=== PATIENT | male | born 1960 | race Caucasian/White ===

== ENCOUNTER 2024-06-07 10:26 | Inpatient (IN) | payer MEDICAID, OTHER, SELFPAY ==
[2024-06-07 10:27] VITALS: BP 123/80; PULSE 64; RESP 16; TEMP 36.3; O2SAT 96; BMI 28.9
[2024-06-07 10:43] VITALS: RESP 16
--- NOTE | 2024-06-07 10:51 | PC.NURSE ---
Antonio comes to the ED today due to recently suicidal ideation without a plan. Pt reports he has been homeless off and on for a bit of time now and he is sick of it . pt requesting housing options and potential TSS admission. Pt is calm and cooperative, help seeking, offering no complaints to this RN. Patient aware of plan of care for medical clearance and then CARE team gayle
[2024-06-07 11:03] LABS: Appearance Urine Clear; Color Urine Dark Yellow; Glucose Urine UA Negative (Negative); Leukocyte Esterase Urine Negative (Negative); Nitrite Urine Negative (Negative); PH 5.5 (5.0-9.0); Specific Gravity - Urine >= 1.030 (1.005-1.025); UMIC TRIGGER UACC YES; Urine Blood Trace (Negative); Urine Ketones Trace mg/dL (Negative); Urine Protein 30 (1+) mg/dL (Neg-Trace)
[2024-06-07 11:08] LABS: Bacteria Urine None Seen (None Seen); Squamous Epithelial Cell Urine 0-2 /HPF (0-2); WBC Urine 0-5 /HPF (0-5)
[2024-06-07 11:19] LABS: Amphetamine Screen Urine Not Detected (Not Detect); Barbiturates, Urine Not Detected (Not Detect); Benzodiazepines Screen Urine Not Detected (Not Detect); Buprenorphine Scr Not Detected (Not Detect); Cannabinoid Screen Urine Not Detected (Not Detect); Cocaine Screen Urine POSITIVE (Not Detect); Fentanyl, urine Not Detected (Not Detect); Methadone Screen, Urine Not Detected (Not Detect); Opiate Screen Urine Not Detected (Not Detect); Oxycodone Screen Urine Not Detected (Not Detect); Phencyclidine Screen Urine Not Detected (Not Detect)
--- NOTE | 2024-06-07 11:21 | ED_ITS ---
HPI - Psych General Chief Complaint: Psychiatric Symptoms Stated Complaint: Depressed Time Seen by Provider: 06/07/24 10:34 Source: patient and EMS Mode of arrival: EMS Limitations: no limitations History of Present Illness ED Provider: Nory SON HPI Narrative: 63-year-old male presents with anxiety, depression, suicidal ideation reports increasing life stressors. He does not have a particular plan as how to how he would end his life has been feeling this way for a while. He reports recently he relapsed on cocaine denies any other drug use. No alcohol abuse. Denies tobacco. No visual, auditory or tactile hallucinations. Denies medical complaints at this time. Related Data Home Medications ?Medication ?Instructions ?Recorded ?Confirmed aripiprazole 2 mg tablet 2 mg PO BEDTIME 06/07/24 06/07/24 atorvastatin 20 mg tablet 20 mg PO BEDTIME 06/07/24 06/07/24 duloxetine 20 mg capsule,delayed 20 mg PO BEDTIME 06/07/24 06/07/24 release duloxetine 60 mg capsule,delayed 60 mg PO DAILY 06/07/24 06/07/24 release levothyroxine 75 mcg tablet 75 mcg PO DAILY 06/07/24 06/07/24 melatonin 5 mg tablet 5 mg PO BEDTIME PRN Insomnia 06/07/24 06/07/24 mirtazapine 15 mg tablet 15 mg PO BEDTIME 06/07/24 06/07/24 omeprazole 20 mg capsule,delayed 20 mg PO DAILY 06/07/24 06/07/24 release Allergies Allergy/AdvReac Type Severity Reaction Status Date / Time No Known Allergies Allergy Verified 06/07/24 10:30 Review of Systems 2 Review of Systems: Yes all other systems are reviewed and are negative PMFSH Past Medical History Attestation statement: The following information was validated with the patient. Source: old records reviewed and nursing notes reviewed Social History Social History Smoked in Last 30 Days: Yes Use of substances other than those prescribed or required for medical reasons: Yes Substance Use Type: Crack/Cocaine Substance Use Frequency: Recent Binge Last Used Substance: Days (ago) Any prior treatment program specific to substance use: No Advance Directives: No Advance Directives Information Provided: Yes Do you have a plan to hurt others: No Plan Physical Exam 2 Vital Signs: Vital Signs: Last Vital Signs Temp 97.3 F 06/07/24 10:27 Pulse 64 06/07/24 10:27 Resp 16 06/07/24 10:43 BP 123/80 06/07/24 10:27 Pulse Ox 96 06/07/24 10:27 O2 Del Method Room Air 06/07/24 10:27 BMI result Body Mass Index 28.9 vss Appearance: Alert.? Oriented X3.? No acute distress.? Head: Normocephalic, atraumatic, no step-offs or deformities Eyes: Pupils equal, round and reactive to light.?.? Neck: Normal inspection.? Neck supple.? CVS: Normal heart rate and rhythm.? Pulses normal.? Respiratory: No respiratory distress.? Breath sounds normal.? Abdomen: Soft and nontender.? Skin: Skin warm and dry.? Normal skin color.? Normal skin turgor.? Extremities: No lower extremity edema.? No calf ttp. 5/5 strength to bilateral upper and lower extremities Neuro: Oriented X 3.? No motor deficit.? No sensory deficit. CN 2-12 intact Course Reevaluation(s) Reevaluation #1: UA without infection. Urine toxicology positive for cocaine. Labs pending Time: 11:23 Reevaluation #2: CBC with no acute findings. Chemistry with mild elevation of BUN and creatinine will encourage p.o. hydration. Transaminases elevated in the 2-1 fashion this could be secondary to substance abuse. UA without infection. Urine toxicology positive for cocaine which patient admitted to. Ethanol negative. At this time patient to be placed into observation to allow more time to be evaluated by care team. Continues to be a one-to-one observation. Time: 12:29 Reevaluation #3: Patient seen and evaluated by CARE team, recommending dual dx program. Time: 14:33 Medical Decision Making Medical Decision Making [facility] Narrative: 63-year-old male presents with homelessness, depression, suicidal ideation with no particular plan recently relapsed on cocaine Physical exam patient unkempt otherwise unremarkable. History and physical exam concerning for anxiety, depression, polysubstance abuse. Will rule out metabolic derangements in urinary infection although unlikely. Plan medical clearance evaluation by care team Differential Diagnosis Differential Diagnoses: The differential diagnosis associated with the presentation includes (History and physical exam concerning for anxiety, depression, polysubstance abuse. Will rule out metabolic derangements in urinary infection although unlikely.) Admission/Observation Consideration of admission/observation: Escalation of care including admission/observation considered Lab Data MDM Lab Attestation statement: I reviewed the patient's lab results. 06/07/24 12:00 06/07/24 12:00 Labs: Lab Results 06/07/24 06/07/24 06/07/24 Range/Units 10:53 10:54 12:00 WBC 7.7 (4.8-10.8) X10*3/uL RBC 4.81 (4.60-5.80) X10*6/uL Hgb 15.0 (14.0-18.0) g/dl Hct 43.9 (42.0-52.0) % MCV 91.3 (80.0-98.0) fL MCH 31.2 (27.0-33.0) pg MCHC 34.2 (31.0-36.0) g/dl RDW 14.2 (11.0-16.0) % Plt Count 176 (160-400) X10*3/uL MPV 10.4 (9.4-12.4) fL Immature Gran % (Auto) 0.3 (0.0-0.4) % Neut % (Auto) 69.7 (45-73) % Lymph % (Auto) 20.2 (20-40) % Letcher % (Auto) 8.3 (2-11) % Eos % (Auto) 0.8 (0-4) % Baso % (Auto) 0.7 (0-2) % Lymph # (Auto) 1.6 (1.2-4.9) X10*3/uL Letcher # (Auto) 0.6 (0.1-1.2) X10*3/uL Eos # (Auto) 0.1 (0.0-0.4) X10*3/uL Baso # (Auto) 0.1 (0.0-0.2) X10*3/uL Abs Immat Gran (auto) 0.02 (0.00-0.03) X10*3/uL Absolute Neuts (auto) 5.4 (2.0-8.3) x10*3/uL Absolute Nucleated RBC 0.000 (0.0-0.012) X10*3/uL Nucleated RBC % (auto) 0.0 (0.0-0.2) /100WBC Sodium 144 (135-145) mmol/L Potassium 4.3 (3.3-5.1) mmol/L Chloride 106 (96-108) mmol/L Carbon Dioxide 24 (22-29) mmol/L Anion Gap 18 (12-20) BUN 19 H (9-16) mg/dL Creatinine 1.25 (0.5-1.4) mg/dL Estim Creat Clear Calc 63.7 Estimated GFR 58 Random Glucose 91 (60-115) mg/dL Calcium 9.3 (8.4-10.2) mg/dL Magnesium 2.1 (1.6-2.6) mg/dL Total Bilirubin 0.9 (0.0-1.0) mg/dL AST 169 H (5-37) U/L ALT 43 H (0-40) U/L Alkaline Phosphatase 40 (39-117) U/L Total Protein 6.9 (6.5-8.0) g/dL Albumin 4.1 (3.5-5.0) g/dL Urine Color Dark Yellow Urine Appearance Clear Urine pH 5.5 (5.0-9.0) Ur Specific Leroy >= 1.030 H (1.005-1.025) Urine Protein 30 (1+) H (Neg-Trace) mg/dL Urine Glucose (UA) Negative (Negative) mg/dL Urine Ketones Trace (Negative) mg/dL Urine Blood Trace H (Negative) Urine Nitrite Negative (Negative) Ur Leukocyte Esterase Negative (Negative) Urine RBC 6-10 H (0-2) /HPF Urine WBC 0-5 (0-5) /HPF Ur Squamous Epith Cells 0-2 (0-2) /HPF Urine Bacteria None Seen (None Seen) Hyaline Casts 3-5 (0-2) /LPF Urine Opiates Screen Not Detected (Not Detect) Ur Buprenorphine Scrn Not Detected (Not Detect) ng/mL Ur Oxycodone Screen Not Detected (Not Detect) ng/mL Urine Methadone Screen Not Detected (Not Detect) ng/mL Urine Fentanyl Screen Not Detected (Not Detect) Ur Barbiturates Screen Not Detected (Not Detect) Ur Phencyclidine Scrn Not Detected (Not Detect) Ur Amphetamines Screen Not Detected (Not Detect) U Benzodiazepines Scrn Not Detected (Not Detect) Urine Cocaine Screen POSITIVE H (Not Detect) U Marijuana (THC) Screen Not Detected (Not Detect) Ethyl Alcohol < 10 mg/dL Chronic Conditions Patient?s care impacted by: Other Social Determinants Patient?s care significantly limited by Social Determinants of Health including: Inadequate housing, Low income, Alcoholism and drug addiction in family, Problems related to primary support group, Unemployment, Problems related to employment and Other Social Determinant of Health Critical Care Time Critical Care Time Critical Care Time: No Discharge Plan Discharge Clinical Impression: Suicidal ideation, Depression Patient Disposition: Still a Patient Prescriptions: No Action atorvastatin 20 mg Tablet 20 mg PO BEDTIME levothyroxine 75 mcg Tablet 75 mcg PO DAILY omeprazole 20 mg Capsule,Delayed Release(Dr/Ec) 20 mg PO DAILY mirtazapine 15 mg Tablet 15 mg PO BEDTIME duloxetine 20 mg Capsule,Delayed Release(Dr/Ec) 20 mg PO BEDTIME duloxetine 60 mg Capsule,Delayed Release(Dr/Ec) 60 mg PO DAILY aripiprazole 2 mg Tablet 2 mg PO BEDTIME melatonin 5 mg Tablet 5 mg PO BEDTIME PRN (Reason: Insomnia) Interventions: Bradford-Suicide Risk Severity Scale Last Done: 06/07/24 10:43 Print Language: Albanian
[2024-06-07 12:05] LABS: MANUAL DIFF FLAG NO
[2024-06-07 12:06] LABS: Basophils Absolute Auto 0.1 X10*3/uL (0.0-0.2); Basophils Percent Auto 0.7 % (0-2); Eosinophils Absolute Auto 0.1 X10*3/uL (0.0-0.4); Eosinophils Percent Auto 0.8 % (0-4); Hematocrit 43.9 % (42.0-52.0); Imm Gran Abs Auto 0.02 X10*3/uL (0.00-0.03); Imm Gran Pct Auto 0.3 % (0.0-0.4); Lymphocytes Absolute Auto 1.6 X10*3/uL (1.2-4.9); Lymphocytes Percent Auto 20.2 % (20-40); Mean Corpuscular HGB Conc 34.2 g/dl (31.0-36.0); Mean Corpuscular Hemoglobin 31.2 pg (27.0-33.0); Mean Corpuscular Volume 91.3 fL (80.0-98.0); Mean Platelet Volume 10.4 fL (9.4-12.4); Monocytes Absolute Auto 0.6 X10*3/uL (0.1-1.2); Monocytes Percent Auto 8.3 % (2-11); Neutrophils Absolute Auto 5.4 x10*3/uL (2.0-8.3); Neutrophils Percent Auto 69.7 % (45-73); Platelet Count 176 X10*3/uL (160-400); Red Blood Count 4.81 X10*6/uL (4.60-5.80); Red Cell Distribution Width 14.2 % (11.0-16.0); White Blood Count 7.7 X10*3/uL (4.8-10.8)
[2024-06-07 12:23] LABS: Alanine Aminotransferase 43 U/L (0-40); Albumin Level 4.1 g/dL (3.5-5.0); Alkaline Phosphatase 40 U/L (39-117); Anion Gap 18 (12-20); Aspartate Amino Transferase 169 U/L (5-37); Bilirubin Total 0.9 mg/dL (0.0-1.0); Blood Urea Nitrogen 19 mg/dL (9-16); Calcium 9.3 mg/dL (8.4-10.2); Carbon Dioxide 24 mmol/L (22-29); Chloride 106 mmol/L (96-108); Creatinine Clr Calc Pharmacy 63.7; Estimated Glomerular Filt Rate 58; Ethanol < 10 mg/dL; Glucose Random 91 mg/dL (60-115); Magnesium 2.1 mg/dL (1.6-2.6); Potassium 4.3 mmol/L (3.3-5.1); Sodium 144 mmol/L (135-145); Total Protein 6.9 g/dL (6.5-8.0)
--- NOTE | 2024-06-07 17:32 | MHC.CARE ---
Patient evaluated by the CARE Team, disposition inpatient psychiatric/dual diagnosis treatment. ED provider, Rudolph Whitney updated.
[2024-06-07 20:55] VITALS: BP 108/73; PULSE 76; RESP 18; TEMP 36.8; O2SAT 96
[2024-06-08 06:15] VITALS: BP 112/85; PULSE 64; RESP 18; TEMP 36.6; O2SAT 98
--- NOTE | 2024-06-08 08:31 | ECG_ITS ---
Test Reason : CHECK QTC Blood Pressure : / mmHG Vent. Rate : 057 BPM Atrial Rate : 057 BPM P-R Int : 164 ms QRS Dur : 074 ms QT Int : 456 ms P-R-T Axes : 067 007 032 degrees QTc Int : 443 ms Sinus bradycardia Otherwise normal ECG No previous ECGs available Referred By: Generic ED Physician Electronically Signed By:JYAE HYATT MD
--- NOTE | 2024-06-08 12:06 | PHA.MEDREC ---
Pharmacy Consult ? Medication Reconciliation Pharmacy has reviewed the medication reconciliation completed by nursing. UMANG Arora, [place] Text [facility] picture of patient's rx bottles filled from [facility]. Medication bottles match home meds.
[2024-06-08 14:00] VITALS: BP 130/85; PULSE 83; RESP 18; TEMP 36.4; O2SAT 97
[2024-06-08 14:46] VITALS: BMI 32.1
--- NOTE | 2024-06-08 14:49 | P.HPPS_ITS ---
HPI Date of Service: 06/08/24 Chief Complaint: depression si crack cocaine use Sources of Information: patient interviewed, chart reviewed and crisis/core team assessment reviewed Additional Sources of Information: pt seen 06/08/24 1500 chart reviewed pt seen HPI Subjective Notes: Salazar Warning and Conditional Voluntary Healthcare Proxy: No Narrative: The patient is a 63-year-old male long history of depression crack cocaine abuse. He was referred from the emergency room secondary worsening depression, hopelessness helplessness thoughts he would be better off increasingly frustrated. Things have gotten worse over the past year and he has been hospitalized on a couple of occasions [facility]. He was stable in the past on the Effexor and Abilify and eventually this stopped working. Stressors include the of his parents, the loss of a long-term over 20 year relationship in 2021 and dealing with chronic pain. He states he has had failed left hip surgery with attempt at repair x1 leaves him with chronic pain and chronic this pain. Past history of significant alcohol use states has been sober from alcohol and denies narcotic use his current meds include duloxetine which she does not feel has been particularly helpful mirtazapine and reportedly low-dose Abilify unclear how he has been taking these and does not take it when he is using crack cocaine he also appears demoralized over the lack of available availability of long-term residential programs for substance use. Has [facility] been at [facility] and [facility] Medical Evaluation Reviewed: Yes Mild elevation of transaminases noted urine positive for cocaine PMF Narrative: History of hip surgery reported failed hip surgery and left hip chronic lumbar disc pain Social History: Patient was born and raised in [place] two-parent household parents are has 2 older brothers. He is not close with his older brothers. Patient has mostly lived in [place] for the past 25 years worked as a [employer] Substance History: Past history of significant alcohol use chronic intermittent use of crack cocaine with multiple substance admissions Diagnostics Vital Signs (24Hr): Vital Signs - 24 hr 06/07/24 20:55 06/08/24 06:15 06/08/24 14:00 Temperature 98.3 F 97.8 F 97.6 F Pulse Rate 76 64 83 Respiratory Rate 18 18 18 Blood Pressure 108/73 112/85 130/85 Pulse Oximetry 96 98 97 Oxygen Delivery Method Room Air Room Air Room Air BMI result Body Mass Index 32.1 Labs 06/07/24 12:00 06/07/24 12:00 Labs: Laboratory Results - last 48 hr 06/07/24 06/07/24 06/07/24 10:53 10:54 12:00 WBC 7.7 RBC 4.81 Hgb 15.0 Hct 43.9 MCV 91.3 MCH 31.2 MCHC 34.2 RDW 14.2 Plt Count 176 MPV 10.4 Immature Gran % (Auto) 0.3 Neut % (Auto) 69.7 Lymph % (Auto) 20.2 Robeson % (Auto) 8.3 Eos % (Auto) 0.8 Baso % (Auto) 0.7 Lymph # (Auto) 1.6 Robeson # (Auto) 0.6 Eos # (Auto) 0.1 Baso # (Auto) 0.1 Abs Immat Gran (auto) 0.02 Absolute Neuts (auto) 5.4 Absolute Nucleated RBC 0.000 Nucleated RBC % (auto) 0.0 Sodium 144 Potassium 4.3 Chloride 106 Carbon Dioxide 24 Anion Gap 18 BUN 19 H Creatinine 1.25 Estim Creat Clear Calc 63.7 Estimated GFR 58 Random Glucose 91 Calcium 9.3 Magnesium 2.1 Total Bilirubin 0.9 AST 169 H ALT 43 H Alkaline Phosphatase 40 Total Protein 6.9 Albumin 4.1 Urine Color Dark Yellow Urine Appearance Clear Urine pH 5.5 Ur Specific Roberts >= 1.030 H Urine Protein 30 (1+) H Urine Glucose (UA) Negative Urine Ketones Trace Urine Blood Trace H Urine Nitrite Negative Ur Leukocyte Esterase Negative Urine RBC 6-10 H Urine WBC 0-5 Ur Squamous Epith Cells 0-2 Urine Bacteria None Seen Hyaline Casts 3-5 Urine Opiates Screen Not Detected Ur Buprenorphine Scrn Not Detected Ur Oxycodone Screen Not Detected Urine Methadone Screen Not Detected Urine Fentanyl Screen Not Detected Ur Barbiturates Screen Not Detected Ur Phencyclidine Scrn Not Detected Ur Amphetamines Screen Not Detected U Benzodiazepines Scrn Not Detected Urine Cocaine Screen POSITIVE H U Marijuana (THC) Screen Not Detected Ethyl Alcohol < 10 EKG EKG: reviewed Meds/Allergies Meds Home Medications ?Medication ?Instructions ?Recorded ?Confirmed ?Type aripiprazole 2 mg tablet 2 mg PO BEDTIME 06/07/24 06/07/24 History atorvastatin 20 mg tablet 20 mg PO BEDTIME 06/07/24 06/07/24 History duloxetine 20 mg capsule,delayed 20 mg PO BEDTIME 06/07/24 06/07/24 History release duloxetine 60 mg capsule,delayed 60 mg PO DAILY 06/07/24 06/07/24 History release levothyroxine 75 mcg tablet 75 mcg PO DAILY 06/07/24 06/07/24 History melatonin 5 mg tablet 5 mg PO BEDTIME PRN Insomnia 06/07/24 06/07/24 History mirtazapine 15 mg tablet 15 mg PO BEDTIME 06/07/24 06/07/24 History omeprazole 20 mg capsule,delayed 20 mg PO DAILY@0630 06/07/24 06/08/24 History release Allergies Allergies Allergy/AdvReac Type Severity Reaction Status Date / Time No Known Allergies Allergy Verified 06/07/24 10:30 Mental Status Exam Mental Status Exam Patient Appearance: Disheveled Patient Orientation: Person, Place, Time and Situation Level of Consciousness: Awake and Appropriate Patient Behavior: Belligerent Mood Description: Depressed and Apprehensive Affect Description: Constricted, Depressed, Labile and Angry Patient Cognition Impaired: No Ability to Follow Directions: Fair Speech Pattern: Clear Memory Description: Intact Hallucinations: None Delusions: Not Present Thought Process: Intact, Distracted and Goal Oriented Thought Content: positive for Goal Oriented, positive for Preoccupation, negative for Suicidal Ideation or negative for Homicidal Ideation Depressive Symptoms: Increased Anxiety, Increased Irritability, Difficulty Sleeping, Hopelessness, Increased Fatigue, Thoughts of /Suicide, Loss of Energy and Difficulty Concentrating Judgement: Fair Judgement and Insight: Patient is asking for help and willingly signed a CV salazar warning given. He was somewhat labile and irritable can you get that from the chart discussed with patient he might be in duloxetine withdrawal Assessment & Plan Assessment & Plan (1) Major depressive disorder, recurrent severe without psychotic features: Status: Acute Code(s): F33.2 - Major depressive disorder, recurrent severe without psychotic features (2) Cocaine use disorder, severe, dependence: Status: Acute Code(s): F14.20 - Cocaine dependence, uncomplicated Plan Patient when seen irritable depressed agitated denied active self-harm he was asking for help. Has for addiction consult with possibility of Suboxone for chronic pain and was hoping longer-term sobriety in relationship to crack cocaine. 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 Consider taper of duloxetine patient needs education that even if he does not take duloxetine when he is using cocaine it very difficult to stabilize from depression for both situational and biological reasons when actively using cocaine crack intermittently he is hoping eventually for longer- term residential treatment which would be appropriate Plan admit to M3 on a conditional voluntary Evaluate labs and EKG ER physician note reviewed Patient will need much education on clinical depression medication and its interaction with substance use. Educate educated regarding possibility of duloxetine withdrawal causing instability If increase adrenergic activity might benefit from clonidine Addiction consult placed Patient educated on: diagnosis, medication risk/benefits and substance abuse Informed Consent: further education needed Reason for continued inpatient stay Substantial Risk for: harm to self and rapid decompensation Statement Statement: I have reviewed the history and physical and performed a pertinent examination on my patient. No changes have occurred unless specified. If the History and Physical was not performed prior to admission, the Hospitalist's service will be consulted for completing the admission physical. Time Spent With Patient Time: Total time managing care of this patient today _60___ minutes.
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
[2024-06-08] MEDS: DULoxetine HCl 60 MG CAPSULE.DR PO (16:22)
[2024-06-08 19:45] VITALS: BP 114/56; PULSE 80; RESP 16; TEMP 37; O2SAT 94
[2024-06-08] MEDS: Atorvastatin Calcium 20 MG TABLET PO (22:02)
[2024-06-08] MEDS: Melatonin 3 MG TABLET 6 MG PO (22:02)
[2024-06-08] MEDS: DULoxetine HCl 20 MG CAPSULE.DR PO (22:02)
[2024-06-08] MEDS: Mirtazapine 15 MG TABLET PO (22:03)
[2024-06-08] MEDS: Topiramate 25 MG TABLET PO (22:03)
[2024-06-08] MEDS: Acetaminophen 325 MG TABLET 650 MG PO (22:03)
[2024-06-09] MEDS: Levothyroxine Sodium 75 MCG TABLET PO (06:47)
[2024-06-09] MEDS: Omeprazole 20 MG CAPSULE.DR PO (06:47)
[2024-06-09 07:28] VITALS: BP 123/76; PULSE 55; RESP 14; TEMP 36.8; O2SAT 96
[2024-06-09] MEDS: Brexpiprazole 1 MG TABLET 0.5 MG PO (09:02)
[2024-06-09] MEDS: DULoxetine HCl 60 MG CAPSULE.DR PO (09:02)
[2024-06-09 10:22] LABS: Alanine Aminotransferase 32 U/L (0-40); Albumin Level 3.8 g/dL (3.5-5.0); Alkaline Phosphatase 39 U/L (39-117); Anion Gap 11 (12-20); Aspartate Amino Transferase 53 U/L (5-37); Bilirubin Total 0.4 mg/dL (0.0-1.0); Blood Urea Nitrogen 19 mg/dL (9-16); Calcium 9.1 mg/dL (8.4-10.2); Carbon Dioxide 23 mmol/L (22-29); Chloride 111 mmol/L (96-108); Cholesterol 169 mg/dL (<200); Creatinine Clr Calc Pharmacy 75.4; Estimated Glomerular Filt Rate > 60; Glucose Fasting 99 mg/dL (60-99); HDL Cholesterol 37 mg/dL (>40); LDL Cholesterol Calculated 95 mg/dL (<100); Sodium 141 mmol/L (135-145); Total Protein 6.5 g/dL (6.5-8.0); Triglycerides 185 mg/dL (<150)
--- NOTE | 2024-06-09 10:24 | P.PNPSI_ITS ---
Subjective Subjective Date of Service: 06/09/24 Reason For Visit: depression si crack cocaine use Subjective Notes: Conditional Voluntary Interim History: Patient reports feeling depressed and full of anxiety ; pt stated, I'm having a hard time finding a place to live. I hadn't been taking my meds in a few days because I was smoking crack. I'm willing to go to a program or care home . Pt reports feeling tired from restarting his medications. attending groups. medication compliant. denies SI/HI/VH/AH. Medication Compliance: Yes Side effects from medications: No Attending Groups: Yes Review of Systems Constitutional: Reports as per HPI Eyes: Reports as per HPI Reports as per HPI Cardiovascular: Reports as per HPI Respiratory: Reports as per HPI Gastrointestinal: Reports as per HPI Genitourinary: Reports as per HPI Musculoskeletal: Reports as per HPI Skin/Breast: Reports as per HPI Reports as per HPI Psychiatric: Reports as per HPI Endocrine: Reports as per HPI Hematologic/Lymphatic: Reports as per HPI Allergic/Immunologic: Reports as per HPI Mental Status Exam Mental Status Exam Narrative: Pt is alert and oriented; behavior is cooperative; dressed in casual attire; mood is described as depressed and full of anxiety ; eye contact appropriate; Speech is normal rate, volume and not pressured; thought process is organized and goal directed; Thought content is on tx; otherwise pertinent to relevant topics and without any delusional content, paranoid ideations or grandiosity; denies SI/HI/VH/AH. Diagnostics Vital Signs (24Hr): Vital Signs - 24 hr 06/08/24 14:00 06/08/24 19:45 06/09/24 07:28 Temperature 97.6 F 98.6 F 98.3 F Pulse Rate 83 80 55 Respiratory Rate 18 16 14 Blood Pressure 130/85 114/56 L 123/76 Pulse Oximetry 97 94 96 Oxygen Delivery Method Room Air Room Air Room Air BMI result Body Mass Index 32.1 Labs 06/07/24 12:00 06/09/24 09:00 Labs: Laboratory Results - last 48 hr 06/07/24 06/07/24 06/07/24 10:53 10:54 12:00 WBC 7.7 RBC 4.81 Hgb 15.0 Hct 43.9 MCV 91.3 MCH 31.2 MCHC 34.2 RDW 14.2 Plt Count 176 MPV 10.4 Immature Gran % (Auto) 0.3 Neut % (Auto) 69.7 Lymph % (Auto) 20.2 [place] % (Auto) 8.3 Eos % (Auto) 0.8 Baso % (Auto) 0.7 Lymph # (Auto) 1.6 [place] # (Auto) 0.6 Eos # (Auto) 0.1 Baso # (Auto) 0.1 Abs Immat Gran (auto) 0.02 Absolute Neuts (auto) 5.4 Absolute Nucleated RBC 0.000 Nucleated RBC % (auto) 0.0 Sodium 144 Potassium 4.3 Chloride 106 Carbon Dioxide 24 Anion Gap 18 BUN 19 H Creatinine 1.25 Estim Creat Clear Calc 63.7 Estimated GFR 58 Random Glucose 91 Fasting Glucose Calcium 9.3 Magnesium 2.1 Total Bilirubin 0.9 AST 169 H ALT 43 H Alkaline Phosphatase 40 Total Protein 6.9 Albumin 4.1 Triglycerides Cholesterol LDL Cholesterol, Calc HDL Cholesterol Urine Color Dark Yellow Urine Appearance Clear Urine pH 5.5 Ur Specific [place] >= 1.030 H Urine Protein 30 (1+) H Urine Glucose (UA) Negative Urine Ketones Trace Urine Blood Trace H Urine Nitrite Negative Ur Leukocyte Esterase Negative Urine RBC 6-10 H Urine WBC 0-5 Ur Squamous Epith Cells 0-2 Urine Bacteria None Seen Hyaline Casts 3-5 Urine Opiates Screen Not Detected Ur Buprenorphine Scrn Not Detected Ur Oxycodone Screen Not Detected Urine Methadone Screen Not Detected Urine Fentanyl Screen Not Detected Ur Barbiturates Screen Not Detected Ur Phencyclidine Scrn Not Detected Ur Amphetamines Screen Not Detected U Benzodiazepines Scrn Not Detected Urine Cocaine Screen POSITIVE H U Marijuana (THC) Screen Not Detected Ethyl Alcohol < 10 06/09/24 09:00 WBC RBC Hgb Hct MCV MCH MCHC RDW Plt Count MPV Immature Gran % (Auto) Neut % (Auto) Lymph % (Auto) [place] % (Auto) Eos % (Auto) Baso % (Auto) Lymph # (Auto) [place] # (Auto) Eos # (Auto) Baso # (Auto) Abs Immat Gran (auto) Absolute Neuts (auto) Absolute Nucleated RBC Nucleated RBC % (auto) Sodium 141 Potassium 4.0 Chloride 111 H Carbon Dioxide 23 Anion Gap 11 L BUN 19 H Creatinine 1.11 Estim Creat Clear Calc 75.4 Estimated GFR > 60 Random Glucose Fasting Glucose 99 Calcium 9.1 Magnesium Total Bilirubin 0.4 AST 53 H ALT 32 Alkaline Phosphatase 39 Total Protein 6.5 Albumin 3.8 Triglycerides 185 H Cholesterol 169 LDL Cholesterol, Calc 95 HDL Cholesterol 37 L Urine Color Urine Appearance Urine pH Ur Specific [place] Urine Protein Urine Glucose (UA) Urine Ketones Urine Blood Urine Nitrite Ur Leukocyte Esterase Urine RBC Urine WBC Ur Squamous Epith Cells Urine Bacteria Hyaline Casts Urine Opiates Screen Ur Buprenorphine Scrn Ur Oxycodone Screen Urine Methadone Screen Urine Fentanyl Screen Ur Barbiturates Screen Ur Phencyclidine Scrn Ur Amphetamines Screen U Benzodiazepines Scrn Urine Cocaine Screen U Marijuana (THC) Screen Ethyl Alcohol Medications Medications Current Medications Acetaminophen (Acetaminophen 325 Mg Tablet) 650 mg PO Q6H PRN PRN Reason: Headache/Pain Mild Scale (1-3) Last Admin: 06/08/24 22:03 Dose: 650 mg Al Hydroxide/Mg Hydroxide (Magnesium Hydrox/Alum Hydrox 30 Ml Oral.Susp) 30 ml PO Q6H PRN PRN Reason: Heartburn/Nausea Atorvastatin Calcium (Atorvastatin Calcium 20 Mg Tablet) 20 mg PO BEDTIME [facility] Last Admin: 06/08/24 22:02 Dose: 20 mg Brexpiprazole (Brexpiprazole 1 Mg Tablet) 0.5 mg PO DAILY [facility] Last Admin: 06/09/24 09:02 Dose: 0.5 mg Duloxetine HCl (Duloxetine Hcl 20 Mg Capsule.Dr) 20 mg PO BEDTIME [facility] Last Admin: 06/08/24 22:02 Dose: 20 mg Duloxetine HCl (Duloxetine Hcl 60 Mg Capsule.Dr) 60 mg PO DAILY [facility] Last Admin: 06/09/24 09:02 Dose: 60 mg Hydroxyzine HCl (Hydroxyzine Hcl 25 Mg Tablet) 25 mg PO Q6H PRN PRN Reason: Anxiety Levothyroxine Sodium (Levothyroxine Sodium 75 Mcg Tablet) 75 mcg PO DAILY@0600 [facility] Last Admin: 06/09/24 06:47 Dose: 75 mcg Magnesium Hydroxide (Milk Of Magnesia 30 Ml Oral.Susp) 30 ml PO DAILY PRN PRN Reason: Constipation Melatonin (Melatonin 3 Mg Tablet) 6 mg PO BEDTIME PRN PRN Reason: Insomnia Last Admin: 06/08/24 22:02 Dose: 6 mg Mirtazapine (Mirtazapine 15 Mg Tablet) 15 mg PO BEDTIME [facility] Last Admin: 06/08/24 22:03 Dose: 15 mg Nicotine (Nicotine 21 Mg Patch.Td24) 21 mg TRANSDERMA DAILY [facility] Last Admin: 06/09/24 09:03 Dose: Not Given Nicotine Polacrilex (Nicotine Polacrilex 2 Mg Gum) 4 mg BUCCAL Q2H PRN PRN Reason: Nicotine Cravings Omeprazole (Omeprazole 20 Mg Capsule.Dr) 20 mg PO DAILY@0630 [facility] Last Admin: 06/09/24 06:47 Dose: 20 mg Topiramate (Topiramate 25 Mg Tablet) 25 mg PO BEDTIME [facility] Last Admin: 06/08/24 22:03 Dose: 25 mg Trazodone HCl (Trazodone Hcl 50 Mg Tablet) 50 mg PO BEDTIME MRX1 PRN PRN Reason: Insomnia Allergies Allergies Allergy/AdvReac Type Severity Reaction Status Date / Time No Known Allergies Allergy Verified 06/07/24 10:30 Assessment & Plan Assessment & Plan (1) Major depressive disorder, recurrent severe without psychotic features: Status: Acute Code(s): F33.2 - Major depressive disorder, recurrent severe without psychotic features (2) Cocaine use disorder, severe, dependence: Status: Acute Code(s): F14.20 - Cocaine dependence, uncomplicated (3) Homelessness: Status: Acute Code(s): Z59.00 - Homelessness unspecified Plan 06/09: Patient reports feeling depressed and full of anxiety ; pt stated, I'm having a hard time finding a place to live. I hadn't been taking my meds in a few days because I was smoking crack. I'm willing to go to a program or care home . Pt reports feeling tired from restarting his medications. attending groups. medication compliant. denies SI/HI/VH/AH. Patient educated on: diagnosis, medication risk/benefits, substance abuse and therapeutic strategies Reason for continued inpatient stay Substantial Risk for: med/psych decompensation Time Spent With Patient Time: Total time managing care of this patient today _20___ minutes.
[2024-06-09 20:00] VITALS: BP 154/94; PULSE 94; TEMP 36.5; O2SAT 97
[2024-06-09] MEDS: Atorvastatin Calcium 20 MG TABLET PO (21:15)
[2024-06-09] MEDS: DULoxetine HCl 20 MG CAPSULE.DR PO (21:15)
[2024-06-09] MEDS: Mirtazapine 15 MG TABLET PO (21:15)
[2024-06-09] MEDS: Topiramate 25 MG TABLET PO (21:15)
[2024-06-09] MEDS: Melatonin 3 MG TABLET 6 MG PO (21:32)
[2024-06-10] MEDS: Levothyroxine Sodium 75 MCG TABLET PO (06:48)
[2024-06-10] MEDS: Omeprazole 20 MG CAPSULE.DR PO (06:48)
[2024-06-10 08:00] VITALS: BP 133/84; PULSE 57; RESP 16; TEMP 36.9; O2SAT 97
[2024-06-10] MEDS: Brexpiprazole 1 MG TABLET 0.5 MG PO (08:45)
[2024-06-10] MEDS: DULoxetine HCl 60 MG CAPSULE.DR PO (08:46)
--- NOTE | 2024-06-10 09:13 | P.PNPSI_ITS ---
Subjective Subjective Date of Service: 06/10/24 Reason For Visit: depression si crack cocaine use Subjective Notes: Conditional Voluntary Interim History: Active on unit. attending groups. Pt continues to reports increased anxiety regarding where I'm going to go after here . Continues to report increased depression. Focused on sobriety. Pt reports sleeping well last night. Medication Compliance: Yes Side effects from medications: No Attending Groups: Yes Review of Systems Constitutional: Reports as per HPI Eyes: Reports as per HPI Reports as per HPI Cardiovascular: Reports as per HPI Respiratory: Reports as per HPI Gastrointestinal: Reports as per HPI Genitourinary: Reports as per HPI Musculoskeletal: Reports as per HPI Skin/Breast: Reports as per HPI Reports as per HPI Psychiatric: Reports as per HPI Endocrine: Reports as per HPI Hematologic/Lymphatic: Reports as per HPI Allergic/Immunologic: Reports as per HPI Mental Status Exam Mental Status Exam Narrative: Pt is alert and oriented; behavior is cooperative; dressed in casual attire; mood is described as depressed and anxiety ; eye contact appropriate; Speech is normal rate, volume and not pressured; thought process is organized and goal directed; Thought content is on tx; otherwise pertinent to relevant topics and without any delusional content, paranoid ideations or grandiosity; denies SI/HI/VH/AH. Diagnostics Vital Signs (24Hr): Vital Signs - 24 hr 06/09/24 20:00 06/10/24 08:00 Temperature 97.7 F 98.5 F Pulse Rate 94 57 Respiratory Rate 16 Blood Pressure 154/94 H 133/84 Pulse Oximetry 97 97 Oxygen Delivery Method Room Air Room Air BMI result Body Mass Index 32.1 Labs 06/07/24 12:00 06/09/24 09:00 Labs: Laboratory Results - last 48 hr 06/09/24 06/10/24 09:00 07:51 Sodium 141 Potassium 4.0 Chloride 111 H Carbon Dioxide 23 Anion Gap 11 L BUN 19 H Creatinine 1.11 Estim Creat Clear Calc 75.4 Estimated GFR > 60 POC Glucose TNP Fasting Glucose 99 Calcium 9.1 Total Bilirubin 0.4 AST 53 H ALT 32 Alkaline Phosphatase 39 Total Protein 6.5 Albumin 3.8 Triglycerides 185 H Cholesterol 169 LDL Cholesterol, Calc 95 HDL Cholesterol 37 L Medications Medications Current Medications Acetaminophen (Acetaminophen 325 Mg Tablet) 650 mg PO Q6H PRN PRN Reason: Headache/Pain Mild Scale (1-3) Last Admin: 06/08/24 22:03 Dose: 650 mg Al Hydroxide/Mg Hydroxide (Magnesium Hydrox/Alum Hydrox 30 Ml Oral.Susp) 30 ml PO Q6H PRN PRN Reason: Heartburn/Nausea Atorvastatin Calcium (Atorvastatin Calcium 20 Mg Tablet) 20 mg PO BEDTIME [facility] Last Admin: 06/09/24 21:15 Dose: 20 mg Brexpiprazole (Brexpiprazole 1 Mg Tablet) 0.5 mg PO DAILY [facility] Last Admin: 06/10/24 08:45 Dose: 0.5 mg Duloxetine HCl (Duloxetine Hcl 20 Mg Capsule.Dr) 20 mg PO BEDTIME [facility] Last Admin: 06/09/24 21:15 Dose: 20 mg Duloxetine HCl (Duloxetine Hcl 60 Mg Capsule.) 60 mg PO DAILY [facility] Last Admin: 06/10/24 08:46 Dose: 60 mg Hydroxyzine HCl (Hydroxyzine Hcl 25 Mg Tablet) 25 mg PO Q6H PRN PRN Reason: Anxiety Levothyroxine Sodium (Levothyroxine Sodium 75 Mcg Tablet) 75 mcg PO DAILY@0600 [facility] Last Admin: 06/10/24 06:48 Dose: 75 mcg Magnesium Hydroxide (Milk Of Magnesia 30 Ml Oral.Susp) 30 ml PO DAILY PRN PRN Reason: Constipation Melatonin (Melatonin 3 Mg Tablet) 6 mg PO BEDTIME PRN PRN Reason: Insomnia Last Admin: 06/09/24 21:32 Dose: 6 mg Mirtazapine (Mirtazapine 15 Mg Tablet) 15 mg PO BEDTIME [facility] Last Admin: 06/09/24 21:15 Dose: 15 mg Nicotine (Nicotine 21 Mg Patch.Td24) 21 mg TRANSDERMA DAILY [facility] Last Admin: 06/09/24 09:03 Dose: Not Given Nicotine Polacrilex (Nicotine Polacrilex 2 Mg Gum) 4 mg BUCCAL Q2H PRN PRN Reason: Nicotine Cravings Omeprazole (Omeprazole 20 Mg Capsule.Dr) 20 mg PO DAILY@0630 [facility] Last Admin: 06/10/24 06:48 Dose: 20 mg Topiramate (Topiramate 25 Mg Tablet) 25 mg PO BEDTIME [facility] Last Admin: 06/09/24 21:15 Dose: 25 mg Trazodone HCl (Trazodone Hcl 50 Mg Tablet) 50 mg PO BEDTIME MRX1 PRN PRN Reason: Insomnia Allergies Allergies Allergy/AdvReac Type Severity Reaction Status Date / Time No Known Allergies Allergy Verified 06/07/24 10:30 Assessment & Plan Assessment & Plan (1) Major depressive disorder, recurrent severe without psychotic features: Status: Acute Code(s): F33.2 - Major depressive disorder, recurrent severe without psychotic features (2) Cocaine use disorder, severe, dependence: Status: Acute Code(s): F14.20 - Cocaine dependence, uncomplicated (3) Homelessness: Status: Acute Code(s): Z59.00 - Homelessness unspecified Plan 06/09: Patient reports feeling depressed and full of anxiety ; pt stated, I'm having a hard time finding a place to live. I hadn't been taking my meds in a few days because I was smoking crack. I'm willing to go to a program or [place] [facility] . Pt reports feeling tired from restarting his medications. attending groups. medication compliant. denies SI/HI/VH/AH. 06/10: Active on unit. attending groups. Pt continues to reports increased anxiety regarding where I'm going to go after here . Continues to report increased depression. Focused on sobriety. Pt reports sleeping well last night. Continue current tx plan. Patient educated on: diagnosis, medication risk/benefits, substance abuse and therapeutic strategies Reason for continued inpatient stay Substantial Risk for: med/psych decompensation Time Spent With Patient Time: Total time managing care of this patient today _20___ minutes.
[2024-06-10] MEDS: hydrOXYzine HCL 25 MG TABLET PO ×2 (14:52→23:55)
--- NOTE | 2024-06-10 16:00 | MHC.RECOVRN ---
Met with pt on M3 after consult placed to Addiction Medicine for cocaine use disorder. Pt awake, alert, easily engages in conversation. Pt reports crack cocaine use, $800 2x per month, INH. Pt reports history of alcohol use, has been in recovery x 20 years. Pt reports longest time in recovery from all substances was 10 years in the early 1999s. Pt reports he goes to AA meetings twice weekly and finds this helpful. Discussed other recovery supports and options, pt interested in meeting with pyridine recovery operator and medication for stimulant cravings. Pt provided with written resources as well as t/w contact information if needed. Denies other questions or concerns for t/w. Discussed with Silvia Thrasher APRN. Plan for pyridine recovery operator to meet with pt on 06/11.
[2024-06-10 20:00] VITALS: BP 140/98; PULSE 65; RESP 16; TEMP 37; O2SAT 99
[2024-06-10] MEDS: Atorvastatin Calcium 20 MG TABLET PO (22:56)
[2024-06-10] MEDS: Mirtazapine 15 MG TABLET PO (22:56)
[2024-06-10] MEDS: DULoxetine HCl 20 MG CAPSULE.DR PO (22:56)
[2024-06-10] MEDS: Topiramate 25 MG TABLET PO (22:56)
[2024-06-10] MEDS: Melatonin 3 MG TABLET 6 MG PO (23:55)
[2024-06-11] MEDS: Levothyroxine Sodium 75 MCG TABLET PO (06:05)
[2024-06-11] MEDS: Omeprazole 20 MG CAPSULE.DR PO (06:30)
[2024-06-11 07:00] VITALS: BMI 32.4
[2024-06-11 07:43] VITALS: BP 145/86; PULSE 76; RESP 16; TEMP 36.2; O2SAT 97
[2024-06-11 07:54] VITALS: BP 145/86; PULSE 76; RESP 16; TEMP 36.2; O2SAT 97
[2024-06-11] MEDS: Brexpiprazole 1 MG TABLET 0.5 MG PO (08:30)
[2024-06-11] MEDS: DULoxetine HCl 60 MG CAPSULE.DR PO (08:30)
--- NOTE | 2024-06-11 09:43 | MHC.RECOVSUP ---
Patient reports no drinking for the last 20 years, but smoked crack due to depression. Depressed because lost dad in 2003 and mom in 2011, relationship ended in 2021 and life hasn't been the same. Eager to see how medication that takes away cocaine cravings will work for him. Hoping to see him again as a patient at [facility].
[2024-06-11] MEDS: hydrOXYzine HCL 25 MG TABLET PO ×2 (10:42→22:48)
--- NOTE | 2024-06-11 10:45 | HO.PSYCHPN ---
Subjective Subjective Date of Service: 06/11/24 Reason For Visit: depression si crack cocaine use Subjective Notes: Conditional Voluntary Interim History: Patient reports feeling down today; pt stated, I feel like I can't relax but it makes me feel better having you talk to me everyday and knowing I'll go to a fpc after here . denies SI/HI/VH/AH. Rexulti increased to 1mg PO daily. Medication Compliance: Yes Side effects from medications: No Attending Groups: Intermittent Review of Systems Constitutional: Reports as per HPI Eyes: Reports as per HPI Reports as per HPI Cardiovascular: Reports as per HPI Respiratory: Reports as per HPI Gastrointestinal: Reports as per HPI Genitourinary: Reports as per HPI Musculoskeletal: Reports as per HPI Skin/Breast: Reports as per HPI Reports as per HPI Psychiatric: Reports as per HPI Endocrine: Reports as per HPI Hematologic/Lymphatic: Reports as per HPI Allergic/Immunologic: Reports as per HPI Mental Status Exam Mental Status Exam Narrative: Pt is alert and oriented; behavior is cooperative; dressed in casual attire; mood is described as depressed and anxiety ; eye contact appropriate; Speech is normal rate, volume and not pressured; thought process is organized and goal directed; Thought content is on tx; otherwise pertinent to relevant topics and without any delusional content, paranoid ideations or grandiosity; denies SI/HI/VH/AH. Diagnostics Vital Signs (24Hr): Vital Signs - 24 hr 06/10/24 20:00 06/11/24 07:43 06/11/24 07:54 Temperature 98.6 F 97.1 F 97.1 F Pulse Rate 65 76 76 Respiratory Rate 16 16 16 Blood Pressure 140/98 H 145/86 H 145/86 H Pulse Oximetry 99 97 97 Oxygen Delivery Method Room Air Room Air Room Air BMI result Body Mass Index 32.1 Labs 06/07/24 12:00 06/09/24 09:00 Labs: Laboratory Results - last 48 hr 06/10/24 07:51 POC Glucose TNP Medications Medications Current Medications Acetaminophen (Acetaminophen 325 Mg Tablet) 650 mg PO Q6H PRN PRN Reason: Headache/Pain Mild Scale (1-3) Last Admin: 06/08/24 22:03 Dose: 650 mg Al Hydroxide/Mg Hydroxide (Magnesium Hydrox/Alum Hydrox 30 Ml Oral.Susp) 30 ml PO Q6H PRN PRN Reason: Heartburn/Nausea Atorvastatin Calcium (Atorvastatin Calcium 20 Mg Tablet) 20 mg PO BEDTIME [facility] BEDS AT [facility] Last Admin: 06/10/24 22:56 Dose: 20 mg Brexpiprazole (Brexpiprazole 1 Mg Tablet) 0.5 mg PO DAILY [facility]S [facility]CLUDE 234 BEDS AT [facility] Last Admin: 06/11/24 08:30 Dose: 0.5 mg Duloxetine HCl (Duloxetine Hcl 20 Mg Capsule.) 20 mg PO BEDTIME [facility]S [facility]CLUDE 234 BEDS AT [facility] Last Admin: 06/10/24 22:56 Dose: 20 mg Duloxetine HCl (Duloxetine Hcl 60 Mg Capsule.) 60 mg PO DAILY [facility]S [facility]CLUDE 234 BEDS AT [facility] Last Admin: 06/11/24 08:30 Dose: 60 mg Hydroxyzine HCl (Hydroxyzine Hcl 25 Mg Tablet) 25 mg PO Q6H PRN PRN Reason: Anxiety Last Admin: 06/11/24 10:42 Dose: 25 mg Levothyroxine Sodium (Levothyroxine Sodium 75 Mcg Tablet) 75 mcg PO DAILY@0600 [facility]S [facility] 234 BEDS [facility] Last Admin: 06/11/24 06:05 Dose: 75 mcg Magnesium Hydroxide (Milk Of Magnesia 30 Ml Oral.Susp) 30 ml PO DAILY PRN PRN Reason: Constipation Melatonin (Melatonin 3 Mg Tablet) 6 mg PO BEDTIME PRN PRN Reason: Insomnia Last Admin: 06/10/24 23:55 Dose: 6 mg Mirtazapine (Mirtazapine 15 Mg Tablet) 15 mg PO BEDTIME [facility] 234 BEDS [facility] Last Admin: 06/10/24 22:56 Dose: 15 mg Nicotine (Nicotine 21 Mg Patch.Td24) 21 mg TRANSDERMA DAILY [facility] 234 BEDS AT [facility] Last Admin: 06/11/24 08:29 Dose: Not Given Nicotine Polacrilex (Nicotine Polacrilex 2 Mg Gum) 4 mg BUCCAL Q2H PRN PRN Reason: Nicotine Cravings Omeprazole (Omeprazole 20 Mg Capsule.) 20 mg PO DAILY@0630 [facility] 234 BEDS [facility] Last Admin: 06/11/24 06:30 Dose: 20 mg Topiramate (Topiramate 25 Mg Tablet) 25 mg PO BEDTIME [facility] 234 BEDS [facility] Last Admin: 06/10/24 22:56 Dose: 25 mg Trazodone HCl (Trazodone Hcl 50 Mg Tablet) 50 mg PO BEDTIME MRX1 PRN PRN Reason: Insomnia Allergies Allergies Allergy/AdvReac Type Severity Reaction Status Date / Time No Known Allergies Allergy Verified 06/07/24 10:30 Assessment & Plan Assessment & Plan (1) Major depressive disorder, recurrent severe without psychotic features: Status: Acute Code(s): F33.2 - Major depressive disorder, recurrent severe without psychotic features (2) Cocaine use disorder, severe, dependence: Status: Acute Code(s): F14.20 - Cocaine dependence, uncomplicated (3) Homelessness: Status: Acute Code(s): Z59.00 - Homelessness unspecified Plan 06/09: Patient reports feeling depressed and full of anxiety ; pt stated, I'm having a hard time finding a place to live. I hadn't been taking my meds in a few days because I was smoking crack. I'm willing to go to a program or fpc . Pt reports feeling tired from restarting his medications. attending groups. medication compliant. denies SI/HI/VH/AH. 06/10: Active on unit. attending groups. Pt continues to reports increased anxiety regarding where I'm going to go after here . Continues to report increased depression. Focused on sobriety. Pt reports sleeping well last night. Continue current tx plan. 06/11: Patient reports feeling down today; pt stated, I feel like I can't relax but it makes me feel better having you talk to me everyday and knowing I'll go to a fpc after here . denies SI/HI/VH/AH. Rexulti increased to 1mg PO daily. Patient educated on: diagnosis, medication risk/benefits and therapeutic strategies Reason for continued inpatient stay Substantial Risk for: med/psych decompensation Time Spent With Patient Time: Total time managing care of this patient today _20___ minutes.
[2024-06-11 20:00] VITALS: BP 116/76; PULSE 79; RESP 16; TEMP 36.7; O2SAT 95
[2024-06-11] MEDS: DULoxetine HCl 20 MG CAPSULE.DR PO (22:47)
[2024-06-11] MEDS: Mirtazapine 15 MG TABLET PO (22:47)
[2024-06-11] MEDS: Atorvastatin Calcium 20 MG TABLET PO (22:47)
[2024-06-11] MEDS: Melatonin 3 MG TABLET 6 MG PO (22:48)
[2024-06-11] MEDS: Topiramate 25 MG TABLET PO (22:48)
[2024-06-11] MEDS: Acetaminophen 325 MG TABLET 650 MG PO (22:48)
[2024-06-12] MEDS: Levothyroxine Sodium 75 MCG TABLET PO (06:27)
[2024-06-12] MEDS: Omeprazole 20 MG CAPSULE.DR PO (06:27)
[2024-06-12 07:39] VITALS: BP 134/96; PULSE 76; RESP 14; TEMP 36.4; O2SAT 96
[2024-06-12 08:00] VITALS: BP 134/96; PULSE 76; RESP 14; TEMP 36.4; O2SAT 96
[2024-06-12] MEDS: Acetaminophen 325 MG TABLET 650 MG PO ×2 (08:05→22:50)
[2024-06-12] MEDS: Brexpiprazole 1 MG TABLET PO (08:06)
[2024-06-12] MEDS: DULoxetine HCl 60 MG CAPSULE.DR PO (10:35)
--- NOTE | 2024-06-12 12:08 | P.PNPSI_ITS ---
Subjective Subjective Date of Service: 06/12/24 Reason For Visit: depression si crack cocaine use Subjective Notes: Conditional Voluntary Interim History: Patient reports feeling down and anxious ; pt stated, I called the [facility] trying to see if they had open beds. I'm just nervous about not getting placed . Pt requesting increase in Cymbalta. denies SI/HI/VH/AH. Increase: Topamax to 50mg PO bedtime Cymbalta 60mg PO daily and 40mg PO bedtime. Medication Compliance: Yes Side effects from medications: No Attending Groups: Intermittent Review of Systems Constitutional: Reports as per HPI Eyes: Reports as per HPI Reports as per HPI Cardiovascular: Reports as per HPI Respiratory: Reports as per HPI Gastrointestinal: Reports as per HPI Genitourinary: Reports as per HPI Musculoskeletal: Reports as per HPI Skin/Breast: Reports as per HPI Reports as per HPI Psychiatric: Reports as per HPI Endocrine: Reports as per HPI Hematologic/Lymphatic: Reports as per HPI Allergic/Immunologic: Reports as per HPI Mental Status Exam Mental Status Exam Narrative: Pt is alert and oriented; behavior is cooperative; dressed in casual attire; mood is described as depressed and anxiety ; eye contact appropriate; Speech is normal rate, volume and not pressured; thought process is organized and goal directed; Thought content is on tx; otherwise pertinent to relevant topics and without any delusional content, paranoid ideations or grandiosity; denies SI/HI/VH/AH. Diagnostics Vital Signs (24Hr): Vital Signs - 24 hr 06/11/24 20:00 06/12/24 07:39 06/12/24 08:00 Temperature 98.1 F 97.6 F 97.6 F Pulse Rate 79 76 76 Respiratory Rate 16 14 14 Blood Pressure 116/76 134/96 H 134/96 H Pulse Oximetry 95 96 96 Oxygen Delivery Method Room Air Room Air Room Air BMI result Body Mass Index 32.4 Labs 06/07/24 12:00 06/09/24 09:00 Medications Medications Current Medications Acetaminophen (Acetaminophen 325 Mg Tablet) 650 mg PO Q6H PRN PRN Reason: Headache/Pain Mild Scale (1-3) Last Admin: 06/12/24 08:05 Dose: 650 mg Al Hydroxide/Mg Hydroxide (Magnesium Hydrox/Alum Hydrox 30 Ml Oral.Susp) 30 ml PO Q6H PRN PRN Reason: Heartburn/Nausea Atorvastatin Calcium (Atorvastatin Calcium 20 Mg Tablet) 20 mg PO BEDTIME [facility] Last Admin: 06/11/24 22:47 Dose: 20 mg Brexpiprazole (Brexpiprazole 1 Mg Tablet) 1 mg PO DAILY [facility] Last Admin: 06/12/24 08:06 Dose: 1 mg Duloxetine HCl (Duloxetine Hcl 20 Mg Capsule.) 20 mg PO BEDTIME [facility] Last Admin: 06/11/24 22:47 Dose: 20 mg Duloxetine HCl (Duloxetine Hcl 60 Mg Capsule.) 60 mg PO DAILY [facility] Last Admin: 06/12/24 10:35 Dose: 60 mg Hydroxyzine HCl (Hydroxyzine Hcl 25 Mg Tablet) 25 mg PO Q6H PRN PRN Reason: Anxiety Last Admin: 06/11/24 22:48 Dose: 25 mg Levothyroxine Sodium (Levothyroxine Sodium 75 Mcg Tablet) 75 mcg PO DAILY@0600 [facility] Last Admin: 06/12/24 06:27 Dose: 75 mcg Magnesium Hydroxide (Milk Of Magnesia 30 Ml Oral.Susp) 30 ml PO DAILY PRN PRN Reason: Constipation Melatonin (Melatonin 3 Mg Tablet) 6 mg PO BEDTIME PRN PRN Reason: Insomnia Last Admin: 06/11/24 22:48 Dose: 6 mg Mirtazapine (Mirtazapine 15 Mg Tablet) 15 mg PO BEDTIME [facility] Last Admin: 06/11/24 22:47 Dose: 15 mg Nicotine (Nicotine 21 Mg Patch.Td24) 21 mg TRANSDERMA DAILY [facility] Last Admin: 06/12/24 10:31 Dose: Not Given Nicotine Polacrilex (Nicotine Polacrilex 2 Mg Gum) 4 mg BUCCAL Q2H PRN PRN Reason: Nicotine Cravings Omeprazole (Omeprazole 20 Mg Capsule.) 20 mg PO DAILY@0630 [facility] Last Admin: 06/12/24 06:27 Dose: 20 mg Topiramate (Topiramate 25 Mg Tablet) 25 mg PO BEDTIME [facility] Last Admin: 06/11/24 22:48 Dose: 25 mg Trazodone HCl (Trazodone Hcl 50 Mg Tablet) 50 mg PO BEDTIME MRX1 PRN PRN Reason: Insomnia Allergies Allergies Allergy/AdvReac Type Severity Reaction Status Date / Time No Known Allergies Allergy Verified 06/07/24 10:30 Assessment & Plan Assessment & Plan (1) Major depressive disorder, recurrent severe without psychotic features: Status: Acute Code(s): F33.2 - Major depressive disorder, recurrent severe without psychotic features (2) Cocaine use disorder, severe, dependence: Status: Acute Code(s): F14.20 - Cocaine dependence, uncomplicated (3) Homelessness: Status: Acute Code(s): Z59.00 - Homelessness unspecified Plan 06/09: Patient reports feeling depressed and full of anxiety ; pt stated, I'm having a hard time finding a place to live. I hadn't been taking my meds in a few days because I was smoking crack. I'm willing to go to a program or snf . Pt reports feeling tired from restarting his medications. attending groups. medication compliant. denies SI/HI/VH/AH. 06/10: Active on unit. attending groups. Pt continues to reports increased anxiety regarding where I'm going to go after here . Continues to report increased depression. Focused on sobriety. Pt reports sleeping well last night. Continue current tx plan. 06/11: Patient reports feeling down today; pt stated, I feel like I can't relax but it makes me feel better having you talk to me everyday and knowing I'll go to a snf after here . denies SI/HI/VH/AH. Rexulti increased to 1mg PO daily. 06/12: Patient reports feeling down and anxious ; pt stated, I called the [facility] trying to see if they had open beds. I'm just nervous about not getting placed . Pt requesting increase in Cymbalta. denies SI/HI/VH/AH. Increase: Topamax to 50mg PO bedtime Cymbalta 60mg PO daily and 40mg PO bedtime. Patient educated on: diagnosis, medication risk/benefits and therapeutic strategies Reason for continued inpatient stay Substantial Risk for: med/psych decompensation Time Spent With Patient Time: Total time managing care of this patient today _20___ minutes.
[2024-06-12 19:50] VITALS: BP 114/71; PULSE 99; RESP 18; TEMP 36.9; O2SAT 92
[2024-06-12] MEDS: Atorvastatin Calcium 20 MG TABLET PO (22:48)
[2024-06-12] MEDS: DULoxetine HCl 20 MG CAPSULE.DR 40 MG PO (22:49)
[2024-06-12] MEDS: Topiramate 25 MG TABLET 50 MG PO (22:49)
[2024-06-12] MEDS: Mirtazapine 15 MG TABLET PO (22:49)
[2024-06-12] MEDS: Melatonin 3 MG TABLET 6 MG PO (22:50)
[2024-06-12] MEDS: hydrOXYzine HCL 25 MG TABLET PO (22:50)
[2024-06-13] MEDS: Levothyroxine Sodium 75 MCG TABLET PO (06:23)
[2024-06-13] MEDS: Omeprazole 20 MG CAPSULE.DR PO (06:23)
[2024-06-13 07:15] VITALS: BP 118/82; PULSE 87; RESP 16; TEMP 36.4; O2SAT 95
[2024-06-13 08:09] VITALS: BP 118/82; PULSE 87; RESP 16; TEMP 2.4; TEMP 36.4; O2SAT 95
[2024-06-13] MEDS: DULoxetine HCl 60 MG CAPSULE.DR PO (08:49)
[2024-06-13] MEDS: Brexpiprazole 1 MG TABLET PO (08:49)
[2024-06-13] MEDS: Acetaminophen 325 MG TABLET 650 MG PO ×2 (10:04→22:57)
--- NOTE | 2024-06-13 13:12 | HO.PSYCHPN ---
Subjective Subjective Date of Service: 06/13/24 Reason For Visit: depression si crack cocaine use Subjective Notes: Conditional Voluntary Interim History: Pt reports sleeping through the night. He reports improved mood. He states worried about where he will go but at least he has identify chcf in [facility]. No SI/HI. no concerns about medications. Review of Systems Review of Systems Yes all other systems are reviewed and are negative Constitutional: Reports as per HPI Eyes: Reports as per HPI Reports as per HPI Cardiovascular: Reports as per HPI Respiratory: Reports as per HPI Gastrointestinal: Reports as per HPI Genitourinary: Reports as per HPI Musculoskeletal: Reports as per HPI Skin/Breast: Reports as per HPI Reports as per HPI Psychiatric: Reports as per HPI Endocrine: Reports as per HPI Hematologic/Lymphatic: Reports as per HPI Allergic/Immunologic: Reports as per HPI Mental Status Exam Mental Status Exam Narrative: Pt is alert and oriented; behavior is cooperative; dressed in casual attire; mood is described as better, affect congruent; eye contact appropriate; Speech is normal rate, volume and not pressured; thought process is organized and goal directed; Thought content is on tx; otherwise pertinent to relevant topics and without any delusional content, paranoid ideations or grandiosity; denies SI/HI/VH/AH. Diagnostics Vital Signs (24Hr): Vital Signs - 24 hr 06/12/24 19:50 06/13/24 07:15 06/13/24 08:09 Temperature 98.4 F 97.5 F 36.4 F L Pulse Rate 99 87 87 Respiratory Rate 18 16 16 Blood Pressure 114/71 118/82 118/82 Pulse Oximetry 92 95 95 Oxygen Delivery Method Room Air Room Air Room Air BMI result Body Mass Index 32.4 Labs 06/07/24 12:00 06/09/24 09:00 Medications Medications Current Medications Acetaminophen (Acetaminophen 325 Mg Tablet) 650 mg PO Q6H PRN PRN Reason: Headache/Pain Mild Scale (1-3) Last Admin: 06/13/24 10:04 Dose: 650 mg Al Hydroxide/Mg Hydroxide (Magnesium Hydrox/Alum Hydrox 30 Ml Oral.Susp) 30 ml PO Q6H PRN PRN Reason: Heartburn/Nausea Atorvastatin Calcium (Atorvastatin Calcium 20 Mg Tablet) 20 mg PO BEDTIME [facility] Last Admin: 06/12/24 22:48 Dose: 20 mg Brexpiprazole (Brexpiprazole 1 Mg Tablet) 1 mg PO DAILY [facility] Last Admin: 06/13/24 08:49 Dose: 1 mg Duloxetine HCl (Duloxetine Hcl 60 Mg Capsule.) 60 mg PO DAILY [facility] Last Admin: 06/13/24 08:49 Dose: 60 mg Duloxetine HCl (Duloxetine Hcl 20 Mg Capsule.) 40 mg PO BEDTIME [facility] Last Admin: 06/12/24 22:49 Dose: 40 mg Hydroxyzine HCl (Hydroxyzine Hcl 25 Mg Tablet) 25 mg PO Q6H PRN PRN Reason: Anxiety Last Admin: 06/12/24 22:50 Dose: 25 mg Levothyroxine Sodium (Levothyroxine Sodium 75 Mcg Tablet) 75 mcg PO DAILY@0600 [facility] Last Admin: 06/13/24 06:23 Dose: 75 mcg Magnesium Hydroxide (Milk Of Magnesia 30 Ml Oral.Susp) 30 ml PO DAILY PRN PRN Reason: Constipation Melatonin (Melatonin 3 Mg Tablet) 6 mg PO BEDTIME PRN PRN Reason: Insomnia Last Admin: 06/12/24 22:50 Dose: 6 mg Mirtazapine (Mirtazapine 15 Mg Tablet) 15 mg PO BEDTIME [facility] Last Admin: 06/12/24 22:49 Dose: 15 mg Nicotine (Nicotine 21 Mg Patch.Td24) 21 mg TRANSDERMA DAILY [facility] Last Admin: 06/13/24 10:07 Dose: Not Given Nicotine Polacrilex (Nicotine Polacrilex 2 Mg Gum) 4 mg BUCCAL Q2H PRN PRN Reason: Nicotine Cravings Omeprazole (Omeprazole 20 Mg Capsule.) 20 mg PO DAILY@0630 [facility] Last Admin: 06/13/24 06:23 Dose: 20 mg Topiramate (Topiramate 25 Mg Tablet) 50 mg PO BEDTIME [facility] Last Admin: 06/12/24 22:49 Dose: 50 mg Trazodone HCl (Trazodone Hcl 50 Mg Tablet) 50 mg PO BEDTIME MRX1 PRN PRN Reason: Insomnia Allergies Allergies Allergy/AdvReac Type Severity Reaction Status Date / Time No Known Allergies Allergy Verified 06/07/24 10:30 Assessment & Plan Assessment & Plan (1) Major depressive disorder, recurrent severe without psychotic features: Status: Acute Code(s): F33.2 - Major depressive disorder, recurrent severe without psychotic features (2) Cocaine use disorder, severe, dependence: Status: Acute Code(s): F14.20 - Cocaine dependence, uncomplicated (3) Homelessness: Status: Acute Code(s): Z59.00 - Homelessness unspecified Plan 06/09: Patient reports feeling depressed and full of anxiety ; pt stated, I'm having a hard time finding a place to live. I hadn't been taking my meds in a few days because I was smoking crack. I'm willing to go to a program or chcf . Pt reports feeling tired from restarting his medications. attending groups. medication compliant. denies SI/HI/VH/AH. 06/10: Active on unit. attending groups. Pt continues to reports increased anxiety regarding where I'm going to go after here . Continues to report increased depression. Focused on sobriety. Pt reports sleeping well last night. Continue current tx plan. 06/11: Patient reports feeling down today; pt stated, I feel like I can't relax but it makes me feel better having you talk to me everyday and knowing I'll go to a chcf after here . denies SI/HI/VH/AH. Rexulti increased to 1mg PO daily. 06/12: Patient reports feeling down and anxious ; pt stated, I called the [facility] trying to see if they had open beds. I'm just nervous about not getting placed . Pt requesting increase in Cymbalta. denies SI/HI/VH/AH. Increase: Topamax to 50mg PO bedtime Cymbalta 60mg PO daily and 40mg PO bedtime. 06/13 continue tx. Reason for continued inpatient stay Substantial Risk for: inability to function Time Spent With Patient Time: Total time managing care of this patient today ____ minutes.
[2024-06-13 19:20] VITALS: BP 140/86; PULSE 82; RESP 18; TEMP 36.6; O2SAT 96
[2024-06-13] MEDS: Melatonin 3 MG TABLET 6 MG PO (22:57)
[2024-06-13] MEDS: Atorvastatin Calcium 20 MG TABLET PO (22:57)
[2024-06-13] MEDS: Mirtazapine 15 MG TABLET PO (22:57)
[2024-06-13] MEDS: Topiramate 25 MG TABLET 50 MG PO (22:57)
[2024-06-13] MEDS: DULoxetine HCl 20 MG CAPSULE.DR 40 MG PO (22:57)
[2024-06-14] MEDS: Levothyroxine Sodium 75 MCG TABLET PO (06:45)
[2024-06-14] MEDS: Omeprazole 20 MG CAPSULE.DR PO (06:46)
[2024-06-14] MEDS: Acetaminophen 325 MG TABLET 650 MG PO ×2 (06:46→22:19)
[2024-06-14 07:33] VITALS: BP 134/90; PULSE 80; RESP 14; TEMP 36.4; O2SAT 96
[2024-06-14] MEDS: DULoxetine HCl 60 MG CAPSULE.DR PO (08:30)
[2024-06-14] MEDS: Brexpiprazole 1 MG TABLET PO (08:30)
[2024-06-14 19:40] VITALS: BP 132/97; PULSE 83; RESP 16; TEMP 36.4; O2SAT 98
--- NOTE | 2024-06-14 20:00 | HO.PSYCHPN ---
Subjective Subjective Date of Service: 06/14/24 Reason For Visit: depression si crack cocaine use Subjective Notes: Conditional Voluntary Interim History: Pt reports sleeping through the night. Pt reports he has to deal with some issues with previous housing, disappointed but doing well otherwise. no si/hi. sleeping through the night. Review of Systems Review of Systems Yes all other systems are reviewed and are negative Constitutional: Reports as per HPI Eyes: Reports as per HPI Reports as per HPI Cardiovascular: Reports as per HPI Respiratory: Reports as per HPI Gastrointestinal: Reports as per HPI Genitourinary: Reports as per HPI Musculoskeletal: Reports as per HPI Skin/Breast: Reports as per HPI Reports as per HPI Psychiatric: Reports as per HPI Endocrine: Reports as per HPI Hematologic/Lymphatic: Reports as per HPI Allergic/Immunologic: Reports as per HPI Mental Status Exam Mental Status Exam Narrative: Pt is alert and oriented; behavior is cooperative; dressed in casual attire; mood is described as better, affect congruent; eye contact appropriate; Speech is normal rate, volume and not pressured; thought process is organized and goal directed; Thought content is on tx; otherwise pertinent to relevant topics and without any delusional content, paranoid ideations or grandiosity; denies SI/HI/VH/AH. Diagnostics Vital Signs (24Hr): Vital Signs - 24 hr 06/14/24 07:33 Temperature 97.5 F Pulse Rate 80 Respiratory Rate 14 Blood Pressure 134/90 H Pulse Oximetry 96 Oxygen Delivery Method Room Air BMI result Body Mass Index 32.4 Labs 06/07/24 12:00 06/09/24 09:00 Medications Medications Current Medications Acetaminophen (Acetaminophen 325 Mg Tablet) 650 mg PO Q6H PRN PRN Reason: Headache/Pain Mild Scale (1-3) Last Admin: 06/14/24 06:46 Dose: 650 mg Al Hydroxide/Mg Hydroxide (Magnesium Hydrox/Alum Hydrox 30 Ml Oral.Susp) 30 ml PO Q6H PRN PRN Reason: Heartburn/Nausea Atorvastatin Calcium (Atorvastatin Calcium 20 Mg Tablet) 20 mg PO BEDTIME [facility] Last Admin: 06/13/24 22:57 Dose: 20 mg Brexpiprazole (Brexpiprazole 1 Mg Tablet) 1 mg PO DAILY [facility] Last Admin: 06/14/24 08:30 Dose: 1 mg Duloxetine HCl (Duloxetine Hcl 60 Mg Capsule.Dr) 60 mg PO DAILY [facility] Last Admin: 06/14/24 08:30 Dose: 60 mg Duloxetine HCl (Duloxetine Hcl 20 Mg Capsule.Dr) 40 mg PO BEDTIME [facility] Last Admin: 06/13/24 22:57 Dose: 40 mg Hydroxyzine HCl (Hydroxyzine Hcl 25 Mg Tablet) 25 mg PO Q6H PRN PRN Reason: Anxiety Last Admin: 06/12/24 22:50 Dose: 25 mg Levothyroxine Sodium (Levothyroxine Sodium 75 Mcg Tablet) 75 mcg PO DAILY@0600 [facility] Last Admin: 06/14/24 06:45 Dose: 75 mcg Magnesium Hydroxide (Milk Of Magnesia 30 Ml Oral.Susp) 30 ml PO DAILY PRN PRN Reason: Constipation Melatonin (Melatonin 3 Mg Tablet) 6 mg PO BEDTIME PRN PRN Reason: Insomnia Last Admin: 06/13/24 22:57 Dose: 6 mg Mirtazapine (Mirtazapine 15 Mg Tablet) 15 mg PO BEDTIME [facility] Last Admin: 06/13/24 22:57 Dose: 15 mg Nicotine (Nicotine 21 Mg Patch.Td24) 21 mg TRANSDERMA DAILY [facility] Last Admin: 06/14/24 08:48 Dose: Not Given Nicotine Polacrilex (Nicotine Polacrilex 2 Mg Gum) 4 mg BUCCAL Q2H PRN PRN Reason: Nicotine Cravings Omeprazole (Omeprazole 20 Mg Capsule.Dr) 20 mg PO DAILY@0630 [facility] Last Admin: 06/14/24 06:46 Dose: 20 mg Topiramate (Topiramate 25 Mg Tablet) 50 mg PO BEDTIME [facility] Last Admin: 06/13/24 22:57 Dose: 50 mg Trazodone HCl (Trazodone Hcl 50 Mg Tablet) 50 mg PO BEDTIME MRX1 PRN PRN Reason: Insomnia Allergies Allergies Allergy/AdvReac Type Severity Reaction Status Date / Time No Known Allergies Allergy Verified 06/07/24 10:30 Assessment & Plan Assessment & Plan (1) Major depressive disorder, recurrent severe without psychotic features: Status: Acute Code(s): F33.2 - Major depressive disorder, recurrent severe without psychotic features (2) Cocaine use disorder, severe, dependence: Status: Acute Code(s): F14.20 - Cocaine dependence, uncomplicated (3) Homelessness: Status: Acute Code(s): Z59.00 - Homelessness unspecified Plan 06/09: Patient reports feeling depressed and full of anxiety ; pt stated, I'm having a hard time finding a place to live. I hadn't been taking my meds in a few days because I was smoking crack. I'm willing to go to a program or half-way . Pt reports feeling tired from restarting his medications. attending groups. medication compliant. denies SI/HI/VH/AH. 06/10: Active on unit. attending groups. Pt continues to reports increased anxiety regarding where I'm going to go after here . Continues to report increased depression. Focused on sobriety. Pt reports sleeping well last night. Continue current tx plan. 06/11: Patient reports feeling down today; pt stated, I feel like I can't relax but it makes me feel better having you talk to me everyday and knowing I'll go to a half-way after here . denies SI/HI/VH/AH. Rexulti increased to 1mg PO daily. 06/12: Patient reports feeling down and anxious ; pt stated, I called the [facility] trying to see if they had open beds. I'm just nervous about not getting placed . Pt requesting increase in Cymbalta. denies SI/HI/VH/AH. Increase: Topamax to 50mg PO bedtime Cymbalta 60mg PO daily and 40mg PO bedtime. 06/13 continue tx 06/14 continue tx. Reason for continued inpatient stay Substantial Risk for: inability to function Time Spent With Patient Time: Total time managing care of this patient today ____ minutes.
[2024-06-14] MEDS: Mirtazapine 15 MG TABLET PO (22:18)
[2024-06-14] MEDS: Atorvastatin Calcium 20 MG TABLET PO (22:18)
[2024-06-14] MEDS: hydrOXYzine HCL 25 MG TABLET PO (22:19)
[2024-06-14] MEDS: Topiramate 25 MG TABLET 50 MG PO (22:19)
[2024-06-14] MEDS: DULoxetine HCl 20 MG CAPSULE.DR 40 MG PO (22:20)
[2024-06-14] MEDS: Melatonin 3 MG TABLET 6 MG PO (22:20)
[2024-06-15] MEDS: Acetaminophen 325 MG TABLET 650 MG PO (06:30)
[2024-06-15] MEDS: Levothyroxine Sodium 75 MCG TABLET PO (06:31)
[2024-06-15] MEDS: Omeprazole 20 MG CAPSULE.DR PO (06:31)
[2024-06-15] MEDS: Brexpiprazole 1 MG TABLET PO (08:51)
[2024-06-15] MEDS: DULoxetine HCl 60 MG CAPSULE.DR PO (08:52)
[2024-06-15 08:55] VITALS: BP 142/97; PULSE 92; RESP 18; TEMP 36.3; O2SAT 96
--- NOTE | 2024-06-15 10:12 | HO.PSYCHPN ---
Subjective Subjective Date of Service: 06/15/24 Reason For Visit: depression si crack cocaine use Subjective Notes: Conditional Voluntary Interim History: Active on unit, social with peers. pt reports feeling better ; pt stated, I plan on staying clean by going to meetings . Pt to discharge to [facility]p tomorrow. denies SI/HI/VH/AH. He reports he plans on following up with outpatient providers. Medication Compliance: Yes Side effects from medications: No Attending Groups: Yes Review of Systems Constitutional: Reports as per HPI Eyes: Reports as per HPI Reports as per HPI Cardiovascular: Reports as per HPI Respiratory: Reports as per HPI Gastrointestinal: Reports as per HPI Genitourinary: Reports as per HPI Musculoskeletal: Reports as per HPI Skin/Breast: Reports as per HPI Reports as per HPI Psychiatric: Reports as per HPI Endocrine: Reports as per HPI Hematologic/Lymphatic: Reports as per HPI Allergic/Immunologic: Reports as per HPI Mental Status Exam Mental Status Exam Narrative: Pt is alert and oriented; behavior is cooperative; dressed in casual attire; mood is described as better, affect congruent; eye contact appropriate; Speech is normal rate, volume and not pressured; thought process is organized and goal directed; Thought content is on tx; otherwise pertinent to relevant topics and without any delusional content, paranoid ideations or grandiosity; denies SI/HI/VH/AH. Diagnostics Vital Signs (24Hr): Vital Signs - 24 hr 06/14/24 19:40 06/15/24 08:55 Temperature 97.5 F 97.4 F Pulse Rate 83 92 Respiratory Rate 16 18 Blood Pressure 132/97 H 142/97 H Pulse Oximetry 98 96 Oxygen Delivery Method Room Air Room Air BMI result Body Mass Index 32.4 Labs 06/07/24 12:00 06/09/24 09:00 Medications Medications Current Medications Acetaminophen (Acetaminophen 325 Mg Tablet) 650 mg PO Q6H PRN PRN Reason: Headache/Pain Mild Scale (1-3) Last Admin: 06/15/24 06:30 Dose: 650 mg Al Hydroxide/Mg Hydroxide (Magnesium Hydrox/Alum Hydrox 30 Ml Oral.Susp) 30 ml PO Q6H PRN PRN Reason: Heartburn/Nausea Atorvastatin Calcium (Atorvastatin Calcium 20 Mg Tablet) 20 mg PO BEDTIME [facility] Last Admin: 06/14/24 22:18 Dose: 20 mg Brexpiprazole (Brexpiprazole 1 Mg Tablet) 1 mg PO DAILY [facility] Last Admin: 06/15/24 08:51 Dose: 1 mg Duloxetine HCl (Duloxetine Hcl 60 Mg Capsule.) 60 mg PO DAILY [facility] Last Admin: 06/15/24 08:52 Dose: 60 mg Duloxetine HCl (Duloxetine Hcl 20 Mg Capsule.Dr) 40 mg PO BEDTIME [facility] Last Admin: 06/14/24 22:20 Dose: 40 mg Hydroxyzine HCl (Hydroxyzine Hcl 25 Mg Tablet) 25 mg PO Q6H PRN PRN Reason: Anxiety Last Admin: 06/14/24 22:19 Dose: 25 mg Levothyroxine Sodium (Levothyroxine Sodium 75 Mcg Tablet) 75 mcg PO DAILY@0600 [facility] Last Admin: 06/15/24 06:31 Dose: 75 mcg Magnesium Hydroxide (Milk Of Magnesia 30 Ml Oral.Susp) 30 ml PO DAILY PRN PRN Reason: Constipation Melatonin (Melatonin 3 Mg Tablet) 6 mg PO BEDTIME PRN PRN Reason: Insomnia Last Admin: 06/14/24 22:20 Dose: 6 mg Mirtazapine (Mirtazapine 15 Mg Tablet) 15 mg PO BEDTIME [facility] Last Admin: 06/14/24 22:18 Dose: 15 mg Nicotine (Nicotine 21 Mg Patch.Td24) 21 mg TRANSDERMA DAILY [facility] Last Admin: 06/15/24 08:53 Dose: Not Given Nicotine Polacrilex (Nicotine Polacrilex 2 Mg Gum) 4 mg BUCCAL Q2H PRN PRN Reason: Nicotine Cravings Omeprazole (Omeprazole 20 Mg Capsule.) 20 mg PO DAILY@0630 [facility] Last Admin: 06/15/24 06:31 Dose: 20 mg Topiramate (Topiramate 25 Mg Tablet) 50 mg PO BEDTIME [facility] Last Admin: 06/14/24 22:19 Dose: 50 mg Trazodone HCl (Trazodone Hcl 50 Mg Tablet) 50 mg PO BEDTIME MRX1 PRN PRN Reason: Insomnia Allergies Allergies Allergy/AdvReac Type Severity Reaction Status Date / Time No Known Allergies Allergy Verified 06/07/24 10:30 Assessment & Plan Assessment & Plan (1) Major depressive disorder, recurrent severe without psychotic features: Status: Acute Code(s): F33.2 - Major depressive disorder, recurrent severe without psychotic features (2) Cocaine use disorder, severe, dependence: Status: Acute Code(s): F14.20 - Cocaine dependence, uncomplicated (3) Homelessness: Status: Acute Code(s): Z59.00 - Homelessness unspecified Plan 06/09: Patient reports feeling depressed and full of anxiety ; pt stated, I'm having a hard time finding a place to live. I hadn't been taking my meds in a few days because I was smoking crack. I'm willing to go to a program or usp . Pt reports feeling tired from restarting his medications. attending groups. medication compliant. denies SI/HI/VH/AH. 06/10: Active on unit. attending groups. Pt continues to reports increased anxiety regarding where I'm going to go after here . Continues to report increased depression. Focused on sobriety. Pt reports sleeping well last night. Continue current tx plan. 06/11: Patient reports feeling down today; pt stated, I feel like I can't relax but it makes me feel better having you talk to me everyday and knowing I'll go to a usp after here . denies SI/HI/VH/AH. Rexulti increased to 1mg PO daily. 06/12: Patient reports feeling down and anxious ; pt stated, I called the [facility] trying to see if they had open beds. I'm just nervous about not getting placed . Pt requesting increase in Cymbalta. denies SI/HI/VH/AH. Increase: Topamax to 50mg PO bedtime Cymbalta 60mg PO daily and 40mg PO bedtime. 06/13 continue tx 06/14 continue tx. 06/15: Active on unit, social with peers. pt reports feeling better ; pt stated, I plan on staying clean by going to meetings . Pt to discharge to usp tomorrow. denies SI/HI/VH/AH. He reports he plans on following up with outpatient providers. Patient educated on: diagnosis, medication risk/benefits and therapeutic strategies Reason for continued inpatient stay Substantial Risk for: stable for discharge Time Spent With Patient Time: Total time managing care of this patient today _20___ minutes.
[2024-06-15] MEDS: hydrOXYzine HCL 25 MG TABLET PO ×2 (13:19→19:40)
[2024-06-15 20:00] VITALS: BP 157/81; PULSE 89; RESP 16; TEMP 36.5; O2SAT 95
[2024-06-15] MEDS: Atorvastatin Calcium 20 MG TABLET PO (20:57)
[2024-06-15] MEDS: Topiramate 25 MG TABLET 50 MG PO (20:57)
[2024-06-15] MEDS: Mirtazapine 15 MG TABLET PO (20:57)
[2024-06-15] MEDS: Melatonin 3 MG TABLET 6 MG PO (20:57)
[2024-06-15] MEDS: DULoxetine HCl 20 MG CAPSULE.DR 40 MG PO (20:57)
[2024-06-16] MEDS: Omeprazole 20 MG CAPSULE.DR PO (06:12)
[2024-06-16] MEDS: Levothyroxine Sodium 75 MCG TABLET PO (06:12)
[2024-06-16 07:29] VITALS: BP 129/87; PULSE 85; RESP 30; TEMP 36.4; O2SAT 98
[2024-06-16] MEDS: DULoxetine HCl 60 MG CAPSULE.DR PO (08:05)
[2024-06-16] MEDS: Brexpiprazole 1 MG TABLET PO (08:05)
[2024-06-16] MEDS: Naloxone HCl Nasal TAKE HOME 4 MG SPRAY 8 MG NOSTRILALT (08:06)
--- NOTE | 2024-06-16 09:38 | PM.PSYDC ---
DS: Providers Provider Date of Service: 06/16/24 Date of admission: 06/08/24 13:08 Date of discharge: 06/16/24 Primary care physician: None Physician Attending physician on admission: Madhav Venegas Consults: 06/08/24 15:58 Addiction Medicine Routine Consulting Provider: Addiction Covering Reason for consultation: chronic pain with addiction ? suboxone Has provider been notified: No Attending physician on discharge: Madhav Venegas Discharging clinician: Damaris Polk DS: Diagnosis Discharge Diagnosis (1) Major depressive disorder, recurrent severe without psychotic features: Status: Acute (2) Cocaine use disorder, severe, dependence: Status: Acute (3) Homelessness: Status: Acute DS: Medications Discharge Medications Home Medications: Previous Rx's ?Medication ?Instructions ?Recorded atorvastatin 20 mg tablet 20 mg PO BEDTIME 30 days #30 tabs 06/15/24 brexpiprazole 1 mg tablet (Rexulti) 1 mg PO DAILY 30 days #30 tabs 06/15/24 duloxetine 40 mg capsule,delayed 40 mg PO BEDTIME 30 days #30 caps 06/15/24 release duloxetine 60 mg capsule,delayed 60 mg PO DAILY 30 days #30 caps 06/15/24 release levothyroxine 75 mcg tablet 75 mcg PO DAILY 30 days #30 tabs 06/15/24 melatonin 5 mg tablet 5 mg PO BEDTIME PRN Insomnia 30 06/15/24 days #30 tabs mirtazapine 15 mg tablet 15 mg PO BEDTIME 30 days #30 tabs 06/15/24 omeprazole 20 mg capsule,delayed 20 mg PO DAILY 30 days #30 caps 06/15/24 release topiramate 50 mg tablet 50 mg PO BEDTIME 30 days #30 tabs 06/15/24 Mental Status Exam Mental Status Exam Narrative: Pt is alert and oriented; behavior is cooperative; dressed in casual attire; mood is described as good ; eye contact appropriate; Speech is normal rate, volume and not pressured; thought process is organized and goal directed; Thought content is on tx; otherwise pertinent to relevant topics and without any delusional content, paranoid ideations or grandiosity; denies SI/HI/VH/AH. Data Data Completed and Pending Completed studies during hospitalization [Text1]: 06/09/24 06/10/24 09:00 07:51 Sodium 141 Potassium 4.0 Chloride 111 H Carbon Dioxide 23 Anion Gap 11 L BUN 19 H Creatinine 1.11 Estim Creat Clear Calc 75.4 Estimated GFR > 60 POC Glucose TNP Fasting Glucose 99 Calcium 9.1 Total Bilirubin 0.4 AST 53 H ALT 32 Alkaline Phosphatase 39 Total Protein 6.5 Albumin 3.8 Triglycerides 185 H Cholesterol 169 LDL Cholesterol, Calc 95 HDL Cholesterol 37 L DS: Summary Hospital Course Hospital Course: The patient is a 63-year-old male long history of depression crack cocaine abuse. He was referred from the emergency room secondary worsening depression, hopelessness helplessness thoughts he would be better off increasingly frustrated. Things have gotten worse over the past year and he has been hospitalized on a couple of occasions in the [facility]. He was stable in the past on the Effexor and Abilify and eventually this stopped working. Stressors include the of his parents, the loss of a long-term over 20 year relationship in 2021 and dealing with chronic pain. He states he has had failed left hip surgery with attempt at repair x1 leaves him with chronic pain and chronic this pain. Past history of significant alcohol use states has been sober from alcohol and denies narcotic use his current meds include duloxetine which she does not feel has been particularly helpful mirtazapine and reportedly low-dose Abilify unclear how he has been taking these and does not take it when he is using crack cocaine he also appears demoralized over the lack of available availability of long-term residential programs for substance use. Has recently been at [facility] is and [facility]. Patient when seen irritable depressed agitated denied active self-harm he was asking for help. Has for addiction consult with possibility of Suboxone for chronic pain and was hoping longer-term sobriety in relationship to crack cocaine. 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 Consider taper of duloxetine patient needs education that even if he does not take duloxetine when he is using cocaine it very difficult to stabilize from depression for both situational and biological reasons when actively using cocaine crack intermittently he is hoping eventually for longer-term residential treatment which would be appropriate Plan admit to [facility] on a conditional voluntary Evaluate labs and EKG ER physician note reviewed Patient will need much education on clinical depression medication and its interaction with substance use. Educate educated regarding possibility of duloxetine withdrawal causing instability If increase adrenergic activity might benefit from clonidine Addiction consult placed Patient reports feeling depressed and full of anxiety ; pt stated, I'm having a hard time finding a place to live. I hadn't been taking my meds in a few days because I was smoking crack. I'm willing to go to a program or penitentiary . Pt reports feeling tired from restarting his medications. attending groups. medication compliant. denies SI/HI/VH/AH. Active on unit. attending groups. Pt continues to reports increased anxiety regarding where I'm going to go after here . Continues to report increased depression. Focused on sobriety. Pt reports sleeping well last night. Continue current tx plan. Patient reports feeling down today; pt stated, I feel like I can't relax but it makes me feel better having you talk to me everyday and knowing I'll go to a penitentiary after here . denies SI/HI/VH/AH. Rexulti increased to 1mg PO daily. Patient reports feeling down and anxious ; pt stated, I called the [facility] trying to see if they had open beds. I'm just nervous about not getting placed . Pt requesting increase in Cymbalta. denies SI/HI/VH/AH. Increase: Topamax to 50mg PO bedtime Cymbalta 60mg PO daily and 40mg PO bedtime. Active on unit, social with peers. pt reports feeling better ; pt stated, I plan on staying clean by going to meetings . Pt to discharge to penitentiary. denies SI/HI/VH/AH. He reports he plans on following up with outpatient providers. Time spent discussing smoking cessation with patient: 3 to 10 minutes Status at Discharge Cognitive/behavioral status at discharge: Patient was interviewed prior to discharge and found to be fully oriented and without SI or HI. Patient has insight and demonstrates good judgment in terms of wanting to pursue treatment. Patient has a safety plan that includes presenting to the closest ER or calling 911 if feeling unsafe. Functional status at discharge: independent ambulation Overall status at discharge: patient is back to baseline Time Spent with Patient Time attestation: Total time managing care of this patient today _20___ minutes. Time spent: Less than 30 minutes Discharge Plan Discharge Anticipated Discharge Date/Time: 06/16/24 11:00 Patient Disposition: Prison Discharge Diagnosis: MDD, cocaine use d/o Referrals: [facility] [Other] - 1 Week (walk in hours are Kennedy-Saturday 8am-8pm Saturday and Saturday 9am-5pm bring discharge paperwork with you) [facility] clinic ([facility]) [Other] - 1 Week (walk in hours are Saturday-Saturday 10am-12pm ) Silvia Bethea MD [Physician] - 1 Week Nakia Goldman NP [Physician] - 06/29/24 1:15 pm (Your follow up appt has been scheduled for 06-29-24 @ 1:30am with Dr. Nakia Goldman at [facility]. (fax tn [phone]) ) Discharge Medications: New duloxetine 40 mg capsule,delayed release(DR/EC) 40 mg PO BEDTIME 30 Days Qty: 30 0RF topiramate 50 mg tablet 50 mg PO BEDTIME 30 Days Qty: 30 0RF Rexulti 1 mg Tablet 1 mg PO DAILY 30 Days Qty: 30 0RF Continued atorvastatin 20 mg Tablet 20 mg PO BEDTIME 30 Days Qty: 30 0RF levothyroxine 75 mcg Tablet 75 mcg PO DAILY 30 Days Qty: 30 0RF mirtazapine 15 mg Tablet 15 mg PO BEDTIME 30 Days Qty: 30 0RF duloxetine 60 mg Capsule,Delayed Release(Dr/Ec) 60 mg PO DAILY 30 Days Qty: 30 0RF melatonin 5 mg Tablet 5 mg PO BEDTIME PRN (Reason: Insomnia) 30 Days Qty: 30 0RF Changed omeprazole 20 mg Capsule,Delayed Release(Dr/Ec) 20 mg PO DAILY 30 Days Qty: 30 0RF Discontinued duloxetine 20 mg Capsule,Delayed Release(Dr/Ec) 20 mg PO BEDTIME aripiprazole 2 mg Tablet 2 mg PO BEDTIME Discharge Orders: Discharge Order (Routine); Ordered 06/16/24 Ordered By: Damaris Polk Diet: Regular diet Activity on Discharge: As tolerated Stand Alone Forms: Patient Portal Discharge page, Community Support Print Language: [place] Care Plan Goals: Maintain mood and safe behaviors Take medications as prescribed Continue to pursue sobriety Practice coping skills Continue with outpatient providers and reach out to them as needed Health Concerns: Mood stability and behaviors Sobriety Plan of Treatment: Follow up with your PCP, psychiatric provider and other outpatient providers regarding above concerns Take medications as prescribed Assessment: Patient was interviewed prior to discharge and found to be fully oriented and without SI or HI. Patient has insight and demonstrates good judgment in terms of wanting to pursue treatment. Patient has a safety plan that includes presenting to the closest ER or calling 911 if feeling unsafe. Discharge Date/Time: 06/16/24 10:33
== END 2024-06-16 10:33 | disposition home or self-care (01) | DRG 751 ==
LOC: HO.ED 18:01 → HO.PADLT16 06-08 13:16
PROVIDERS: Physician Assistant; Psychiatry & Neurology Psychiatry; Admitting Provider Registered Nurse; Emergency Provider Emergency Medicine; Responsible Provider Registered Nurse; Visit Provider Psychiatry & Neurology Psychiatry
DX: F33.2 Major depressive disorder, recurrent severe without psychotic features (principal); R45.851 Suicidal ideations; F17.210 Nicotine dependence, cigarettes, uncomplicated; F14.20 Cocaine dependence, uncomplicated; Z59.02 Unsheltered homelessness; Z71.6 Tobacco abuse counseling; Z79.890 Hormone replacement therapy; Z79.899 Other long term (current) drug therapy
CPT/HCPCS: 36415; 80053; 80061; 80307; 81001; 81003; 82947; 83735; 85025; 93005; 99285; S9485

== ENCOUNTER → 2024-06-08 08:31 | Outpatient (BNV) | payer MEDICAID, SELFPAY | PROVIDERS: Admitting Provider Registered Nurse; Emergency Provider Emergency Medicine; Visit Provider Internal Medicine Cardiovascular Disease | DX: R00.1 Bradycardia, unspecified (principal) | CPT/HCPCS: 93010 ==

== ENCOUNTER → 2024-06-08 13:08 | Outpatient (BNV) | payer OTHER, SELFPAY | PROVIDERS: Admitting Provider Registered Nurse; Emergency Provider Emergency Medicine; Visit Provider Registered Nurse | DX: F33.2 Major depressive disorder, recurrent severe without psychotic features (principal); F14.20 Cocaine dependence, uncomplicated; Z59.00 Homelessness unspecified | CPT/HCPCS: 99231; 99232 ==

== ENCOUNTER → 2024-06-08 13:08 | Outpatient (BNV) | payer OTHER, SELFPAY | PROVIDERS: Admitting Provider Registered Nurse; Emergency Provider Emergency Medicine; Visit Provider Psychiatry & Neurology Psychiatry | DX: F33.2 Major depressive disorder, recurrent severe without psychotic features (principal); F14.20 Cocaine dependence, uncomplicated | CPT/HCPCS: 90792 ==